=== PATIENT | male | born 1970 | race Caucasian/White ===

== ENCOUNTER → 2019-08-27 | Day surgery (SDC) | payer OTHER ==
[~2019-08-27] MED LIST: AMLODIPINE BESYL5 MG PO; FENTANYL CITRATE/PF 100MCG/2 ML INJ ONE; FISH OIL 1,0001 EAC2 PO; GLUCAGON FOR INJ 1 MG VIAL ONE; HYOSCYAMINE 0.125 MG TAB ONE; MIDAZOLAM HCL 2 MG/2 ML VIAL ONE; MULTI-VITAMIN1 EACH PO; OSTEO BI-FLEX1 EAC2 PO; PROPOFOL IV EMULSION 10 MG/ML 50 ML VIAL ONE; VITAMIN B-122500 MCG PO
[2019-08-27 10:40] VITALS: BP 115/69
--- NOTE | 2019-08-27 17:17 | Operative Report ---
DATE OF PROCEDURE: 08/27/2019 SURGEON: Pelon Jamison MD PROCEDURE: Colonoscopy with polypectomy and biopsies. INDICATIONS FOR COLONOSCOPY: Surveillance colonoscopy, personal history of colon polyps. MEDICATIONS: The patient was done under MAC, please see anesthesiologist's note. PROCEDURE IN DETAIL: With the patient in left lateral decubitus position, flexible fiberoptic Olympus colonoscope was inserted into the rectum with ease and advanced all the way to the cecum. Mucosa overlying the cecum appeared to be within normal limits. The ileocecal valve was intubated and the scope was advanced into the terminal ileum. Mucosa was excessively nodular and biopsies were obtained. The scope was then withdrawn back into the colon. It was then withdrawn slowly and a minute polyp was noted in the proximal ascending colon that was removed per cold biopsy forceps. The rest of the ascending, transverse, descending, and sigmoid other than for some scattered diverticular disease appeared to be within normal limits. Two minute polyps were removed per cold biopsy forceps. The scope was then retroflexed into the distal rectum and small internal hemorrhoids were noted, none of which was actively bleeding. The scope was then straightened out. It was subsequently withdrawn. The patient tolerated procedure well. IMPRESSION: 1. Terminal ileum, mucosa excessively nodular, biopsied. 2. Ascending colon polyp, minute, removed per cold biopsy forceps. 3. Diverticulosis. 4. Rectal polyps x2, removed per cold biopsy forceps. 5. Internal hemorrhoids, none actively bleeding. PLAN: Follow up histology. Initiate high-fiber, low-fat diet. Initiate high-fiber supplement. The patient might benefit from a followup colonoscopy in 5 years. Pelon Jamison MD [facility] [place] /[id number] cc: Severo Bailey DO
== END | disposition home or self-care (01) ==
LOC: OR 06:21
PROVIDERS: ATTEND Internal Medicine Gastroenterology
DX: Z09 Encounter for follow-up examination after completed treatment for conditions other than malignant neoplasm (principal); K63.5 Polyp of colon; K62.1 Rectal polyp; K63.89 Other specified diseases of intestine; K57.30 Diverticulosis of large intestine without perforation or abscess without bleeding; K64.8 Other hemorrhoids; R03.0 Elevated blood-pressure reading, without diagnosis of hypertension; Z68.34 Body mass index [BMI] 34.0-34.9, adult
CPT/HCPCS: 45380; 93005; J1610; J2250; J2704; J3010; 45378; 45384